=== PATIENT | female | born 1980 | race Caucasian/White ===

== ENCOUNTER → 2017-02-03 | Outpatient (CLI) | payer BC ==
[~2017-02-03] VITALS: Ht 165.1 cm; Wt 96.2 kg
[~2017-02-03] MED LIST: ADIPEX-P37.5 MG PO; B-12 500 MCG; BIOTIN10000 MC1 PO; CALCIUM-500 5001 CTB PO; CENTRUM1 TA1 PO; FASTIN30 MG PO; MULTI VITAMINS1 TAB PO; NATURE'S BLE1000 MCG PO; NORCO 325 MG-51 TAB PO; PHENTERMINE15 MG PO; PRENATAL PO; ZOFRAN 4MG T4 MG/TAB PO
[2017-02-03 15:10] VITALS: BP 120/55; PULSE 62
== END ==
LOC: LIGHT 11-25 13:53
DX: E88.81 Metabolic syndrome and other insulin resistance (principal); E16.1 Other hypoglycemia; E66.9 Obesity, unspecified; Z68.35 Body mass index [BMI] 35.0-35.9, adult; Z71.3 Dietary counseling and surveillance

== ENCOUNTER → 2017-12-30 | Outpatient (CLI) | payer BC | LOC: COL.RAD 09:25 | DX: K82.0 Obstruction of gallbladder (principal) ==

== ENCOUNTER → 2018-01-23 | Outpatient (CLI) | payer BC | LOC: COL.RAD 01-16 13:06 | DX: Z01.89 Encounter for other specified special examinations (principal) ==

== ENCOUNTER → 2018-01-26 | Outpatient (CLI) | payer BC | LOC: COL.RAD 06:02 | DX: R10.11 Right upper quadrant pain (principal) | CPT/HCPCS: A9537; J2270 ==

== ENCOUNTER 2018-03-15 21:06 | Emergency (ER) | payer BC ==
[~2018-03-15] VITALS: Ht 165.1 cm; Wt 100.0 kg
[2018-03-15 21:21] VITALS: TEMP 98.9
[2018-03-15] MEDS ORDERED: ALDACTONE50 MG PO (21:56)
[2018-03-15 22:51] LABS: BASO # 0.1 (0.0-0.2); BASO % 0.6 % (0.0-2.0); EOS # 0.1 (0.0-0.7); EOS % 0.8 % (0-4.0); GRAN # 8.4 (1.4-6.5); GRAN % 77.8 % (42.2-75.2); HEMATOCRIT 43.2 % (37.0-47.0); HEMOGLOBIN 14.7 g/dl (12.5-16.0); LYMPH # 1.4 (1.2-3.4); LYMPH % 12.9 % (20.0-51.0); MEAN CELL VOLUME 90 fl (80.0-100.0); MEAN CORPUSCULAR HEMOGLOBIN 31 pg (27.0-31.0); MEAN CORPUSCULAR HGB CONC 34 g/dl (33.0-37.0); MEAN PLATELET VOLUME 8.7 fl (7.4-10.4); MONO # 0.8 (0.1-0.6); MONO % 7.3 % (1.7-9.3); PLATELET COUNT 280 K/mm3 (130-400); REDCELL DISTRIBUTION WIDTH-CV 12.2 % (11.5-14.5)
[2018-03-15 23:00] LABS: ALBUMIN 4.2 gm/dL (3.5-5.0); BILIRUBIN,TOTAL 4.5 mg/dL (0.0-1.0); CALCIUM 9.5 mg/dL (8.4-10.2); CREATININE, serum 0.77 mg/dL (0.52-1.25); POTASSIUM 3.7 mmol/L (3.4-5.0); TOTAL PROTEIN 8.1 gm/dL (6.4-8.2)
[2018-03-16 01:45] LABS: COLLECTION METHOD CLEAN CATCH
[2018-03-16 01:46] VITALS: BP 125/73; PULSE 65
[2018-03-16 01:56] LABS: MUCOUS Present /lpf; PH 5 (5-8); URINE APPEARANCE Hazy; URINE BACTERIA Rare /hpf; URINE BILIRUBIN Positive (NEGATIVE); URINE BLOOD Negative (NEGATIVE); URINE CALCIUM OXALATE CRYSTAL Present /hpf; URINE COLOR Amber; URINE GLUCOSE Negative (NEGATIVE); URINE KETONE 1+ (NEGATIVE); URINE LEUKOCYTE ESTERASE Negative (NEGATIVE); URINE NITRATE Negative (NEGATIVE); URINE PROTEIN(semi-quant) Negative (NEGATIVE); URINE RBC None Seen /hpf; URINE UROBILINOGEN >=4.0 mg/dL (NEGATIVE)
[2018-03-17] MEDS ORDERED: ZOFRAN 4MG T4 MG/TAB PO (15:15)
[2018-03-17] MEDS ORDERED: NORCO 325 MG-51 TAB PO (15:15)
[2018-03-17] MEDS ORDERED: GAS RELIEF125 MG PO (15:15)
[2018-03-17] MEDS ORDERED: PRILOSEC 20MG20 MG PO (17:12)
== END 2018-03-16 02:06 | disposition home or self-care (01) ==
LOC: COL.ER 21:06
PROVIDERS: Emergency Medicine
DX: E78.5 Hyperlipidemia, unspecified (principal); R94.5 Abnormal results of liver function studies; R10.13 Epigastric pain; Z90.49 Acquired absence of other specified parts of digestive tract; Z98.890 Other specified postprocedural states
CPT/HCPCS: J2765; J3010; J7030

== ENCOUNTER 2018-03-17 15:02 | Day surgery (SDC) | payer BC ==
[~2018-03-17] VITALS: Ht 165.1 cm; Wt 99.7 kg
[2018-03-17] VITALS (7 sets, daily range): BP systolic 102–136; BP diastolic 47–65; PULSE 61–79; TEMP 98.3
[~2018-03-17 15:02] MED LIST changes: +ALDACTONE50 MG PO
[2018-03-17] MEDS ORDERED: GAS RELIEF125 MG PO (15:15)
[2018-03-17] MEDS ORDERED: NORCO 325 MG-51 TAB PO (15:15)
[2018-03-17] MEDS ORDERED: ZOFRAN 4MG T4 MG/TAB PO (15:15)
[2018-03-17] MEDS ORDERED: PRILOSEC 20MG20 MG PO (17:12)
== END 2018-03-17 19:30 | disposition home or self-care (01) ==
LOC: SDCO 15:02
DX: R17 Unspecified jaundice (principal); R94.5 Abnormal results of liver function studies; K26.7 Chronic duodenal ulcer without hemorrhage or perforation; K31.9 Disease of stomach and duodenum, unspecified; K83.8 Other specified diseases of biliary tract; Z98.84 Bariatric surgery status
CPT/HCPCS: C1769; J2704; J3010; Q9967

== ENCOUNTER → 2021-06-25 | Outpatient (CLI) | payer BC ==
[~2021-06-25] MED LIST changes: +GAS RELIEF125 MG PO; +PRILOSEC 20MG20 MG PO
== END ==
LOC: MC.RAD 15:00
DX: Z12.31 Encounter for screening mammogram for malignant neoplasm of breast (principal)

== ENCOUNTER → 2021-06-28 | Outpatient (CLI) | payer BC | LOC: MC.RAD 07:43 | DX: N63.10 Unspecified lump in the right breast, unspecified quadrant (principal) ==

== ENCOUNTER → 2021-12-31 | Outpatient (CLI) | payer BC | LOC: MC.RAD 06:59 | DX: N63.10 Unspecified lump in the right breast, unspecified quadrant (principal) ==

== ENCOUNTER → 2022-07-29 | Outpatient (CLI) | payer BC | LOC: MC.RAD 06:56 | DX: R92.8 Other abnormal and inconclusive findings on diagnostic imaging of breast (principal) ==